=== PATIENT | male | born 1980 | race Caucasian/White ===

== ENCOUNTER 2018-04-25 13:24 | Outpatient (REF) | payer OTHER, SELFPAY ==
[2018-04-25 14:22] LABS: HCT 47.6 % (40.0-50.0); HGB 15.9 g/dL (13.5-17.5); Mean Corp. HGB Concentration 33.4 g/dL (32.0-36.0); Mean Corpuscular Volume 77.9 fL (80-95); Mean Platelet Volume 10.8 fL (8.0-11.0); Platelet Count 200 x1000/uL (130-400); RBC 6.11 m/cumm (4.50-6.00); White Blood Cell Count 7.73 k/cumm (4.4-10.8)
[2018-04-25 14:29] LABS: ALT 29 U/L (12-78); AST 13 U/L (15-37); Anion Gap 10.4 mmol/L (3-11); BUN 14 mg/dL (7-18); CO2 26.6 mmol/L (21.0-32.0); CREATININE 0.93 mg/dL (0.70-1.30); Calcium 9.4 mg/dL (8.5-10.1); Chloride 105 mmol/L (98-107); Cholesterol 192 mg/dL (50-200); Glucose 92 mg/dL (70-100); HDL Cholesterol 33 mg/dL (40-60); LDL CHOLESTEROL 145 mg/dL (<100); Potassium 4.3 mmol/L (3.5-5.1); Sodium 142 mmol/L (136-145); Triglyceride 93 mg/dL (30-150)
== END 2018-04-25 13:44 ==
LOC: NCHCN 13:24
PROVIDERS: Visit Provider Nurse Practitioner Family
DX: Z00.00 Encounter for general adult medical examination without abnormal findings (principal); Z13.220 Encounter for screening for lipoid disorders; Z13.228 Encounter for screening for other metabolic disorders; Z13.0 Encounter for screening for diseases of the blood and blood-forming organs and certain disorders involving the immune mechanism
CPT/HCPCS: 80048; 80061; 83721; 85027; 84450; 84460

== ENCOUNTER 2018-05-02 12:11 | Outpatient (REF) | payer OTHER, SELFPAY ==
[2018-05-02 13:24] LABS: Reticulocyte 0.8 % (0.5-2.4)
[2018-05-02 13:35] LABS: Iron 101 ug/dL (50-175); Total Iron Binding Capacity 310 ug/dL (250-450); Transferrin Sat 33 % (20-55)
[2018-05-02 13:53] LABS: Ferritin 186 ng/mL (8-388)
== END 2018-05-02 12:31 ==
LOC: NCHCN 12:11
PROVIDERS: PCP Nurse Practitioner Family; Visit Provider Nurse Practitioner Family
DX: Z00.00 Encounter for general adult medical examination without abnormal findings (principal); Z13.0 Encounter for screening for diseases of the blood and blood-forming organs and certain disorders involving the immune mechanism
CPT/HCPCS: 82728; 83540; 83550; 85045

== ENCOUNTER 2020-04-24 03:25 | Outpatient (CLI) | payer BC, SELFPAY ==
[2020-04-24 11:19] LABS: MCH 26.6 pg (27.0-33.0); MCHC 33.3 % (32.0-36.0); MCV 79.7 fL (80-95); MPV 9.6 fL (8.0-11.0); Platelet Count 196 10^3/uL (130-400); RBC 6.02 10^6/uL (4.36-5.78); RDW-SD 43.5 fL
[2020-04-24 12:46] LABS: D-Dimer 197 ng/mlFEU (<500)
== END 2020-04-24 03:45 ==
PROVIDERS: PCP Nurse Practitioner Family; Visit Provider Family Medicine
DX: M79.662 Pain in left lower leg (principal)
CPT/HCPCS: 36415; 85027; 85379

== ENCOUNTER 2023-10-29 15:21 | Outpatient (REF) | payer BC, SELFPAY ==
[2023-10-29 15:00] LABS: HGB 15.8 g/dL (13.5-17.5); MCH 25.9 pg (27.0-33.0); MCHC 32.9 % (32.0-36.0); MCV 79 fL (80-95); Platelet Count 183 10^3/uL (130-400); RDW 15.9 % (11.8-14.1); RDW-SD 44.2 fL; WBC 7.04 10^3/uL (4.4-10.8)
[2023-10-29 15:22] LABS: Hemoglobin A1C 5.9 % (<5.7)
[2023-10-29 19:18] LABS: Iron 77 ug/dL (65-175); Total Iron Binding Capacity 310 ug/dL (250-450); Transferrin Sat 25 % (20-55)
[2023-10-29 19:30] LABS: ALT 28 U/L (16-63); AST 15 U/L (15-37); Alkaline Phosphatase 99 U/L (46-116); Anion Gap 9.9 mmol/L (3-11); BUN 17 mg/dL (7-18); Bilirubin, Total 0.27 mg/dL (0.2-1.0); CO2 25.1 mmol/L (21.0-32.0); CREATININE 0.9 mg/dL (0.70-1.30); Calcium 8.9 mg/dL (8.5-10.1); Calculated LDL 122 mg/dL (<100); Chloride 106 mmol/L (98-107); Cholesterol 191 mg/dL (<200); Estimated GFR 107.33 (mL/min/1.73m2); Ferritin 198 ng/mL (26-388); Glucose 107 mg/dL (74-106); HDL Cholesterol 34 mg/dL (40-60); Potassium 3.9 mmol/L (3.5-5.1); Sodium 141 mmol/L (136-145); TSH (W/Ref FT4) 0.85 uIU/mL (0.36-3.74); Total Protein 6.6 g/dL (6.4-8.2); Triglyceride 177 mg/dL (<150)
[2023-11-01 11:01] LABS: Lyme Ab w Rflx to Lyme Confirm Negative (Negative)
[2023-11-01 17:24] LABS: Anaplasma phagocytophilum Negative (Negative); B. miyamotoi PCR Negative (Negative); Babesia divergens/MO-1 Negative (Negative); Babesia duncani Negative (Negative); Babesia microti Negative (Negative); Ehrlichia chaffeensis Negative (Negative); Ehrlichia ewingii/canis Negative (Negative); Ehrlichia muris eauclairensis Negative (Negative)
== END 2023-10-29 15:22 | disposition home or self-care (01) ==
LOC: NCHCN 15:21
PROVIDERS: PCP Nurse Practitioner Family; Visit Provider Nurse Practitioner Family
DX: Z00.00 Encounter for general adult medical examination without abnormal findings (principal); R53.83 Other fatigue
CPT/HCPCS: 80053; 80061; 85027; 87798; 82728; 83036; 83540; 83550; 84443; 86618

== ENCOUNTER 2024-01-21 13:47 | Emergency (ER) | payer OTHER, SELFPAY ==
[2024-01-21 14:00] VITALS: BP 146/91; RESP 10; TEMP 36.6; O2SAT 95
--- NOTE | 2024-01-21 14:13 | ED.GENADUL_ITS ---
Discharge Plan Disposition Patient Disposition: Home Condition: Stable Discharge Details Chief Complaint: Orthopedic Clinical Impression: Crushing injury of right ring finger Primary Care Provider: Nadege Saleh ED Provider: Darius Salomon Home Meds and New Rx's Prescriptions: No Action No Known Home Meds Discharge Instructions Additional Instructions: Wear the splint as needed until your pain is improved. He can follow-up with your primary care provider if not improving in 1 to 2 weeks You can take 1000 mg of acetaminophen and 600 mg of ibuprofen every 6 hours as needed If you feel more ill or have severe worsening pain return to the emergency department for reevaluation HPI General Mode of arrival: ambulatory . Date/Time Provider Initiated Documentation: 01/21/24 14:01 . Limitations to Documentation: no limitations . Information obtained by: patient . History of Present Illness 43 year old M presents to the emergency department with the chief complaint of right ring finger injury, described as moderate, Quality is described as aching, and is localized to the right and upper extremity. Patient reports no radiation. Patient started experiencing this hour(s) (1) and it has been constant. No relieving factors improve symptom(s), No exacerbating factors reported . Patient notes no other symptoms.. Patient did receive the following treatments prior to arrival, none Related Data Home Medications ?Medication ?Instructions ?Recorded ?Confirmed Unknown [No Known Home Meds] 01/21/24 01/21/24 Allergies Allergy/AdvReac Type Severity Reaction Status Date / Time No Known Allergies Allergy Unverified 01/21/24 14:01 General Stated Complaint: Orthopedic MEENAKSHI: 4 Review of Systems All systems reviewed & are unremarkable except as noted in HPI and below Constitutional Constitutional: Denies chills, Denies fever(s) and Denies weakness Cardiovascular Cardiovascular: Denies chest pain and Denies dyspnea Respiratory Respiratory: Denies cough and Denies dyspnea Gastrointestinal Gastrointestinal: Denies abdominal pain and Denies vomiting Neurologic Neurologic: Denies weakness Exam Const General: no acute distress Orientation: alert HENMT Head: normal to inspection Ears: external ears normal General nose exam: external nose normal Mouth: moist mucous membranes Eyes General: appearance normal, both eyes and all related structures Neck Neck: normal visual inspection Resp Effort & Inspection: normal respiratory effort and able to speak in complete sentences Cardio Rate: regular rate Skin General skin exam: no rashes or lesions noted Neuro General: patient alert and patient oriented x3 Extrem General: capillary refill normal Psych Mental Status: mental status grossly normal Course Vital Signs Vital signs: Vital Signs Temperature 36.6 C 01/21/24 14:00 Respiratory Rate 10 L 01/21/24 14:00 Blood Pressure 146/91 H 01/21/24 14:00 Pulse Oximetry 95 01/21/24 14:00 Temperature 36.6 C 01/21/24 14:00 Temperature Source Skin 01/21/24 14:00 Respiratory Rate 10 L 01/21/24 14:00 Blood Pressure 146/91 H 01/21/24 14:00 Blood Pressure Position Sitting 01/21/24 14:00 Pulse Oximetry 95 01/21/24 14:00 Oxygen Delivery Method Room Air 01/21/24 14:00 Oxygen Flow Rate 0 01/21/24 14:00 Pain Level 7 01/21/24 14:00 Medical Decision Making 43-year-old male who denies any significant past medical history, states that he had tetanus shot 2 years ago, comes in with right ring finger injury. He says he was at work and a heavy piece of machinery fell on the distal part of his right ring finger. He did not fall or hit his head or sustain other injuries. The distal part of his right ring finger is swollen and tender. He has a small skin abrasion on the posterior surface of the just proximal to the nail. There is no subungual hematoma, he has full range of motion at the PIP and DIP as well as the MCP joints. Intact cap refill and sensation. X-ray taken prior to my exam on my read shows distal finger fracture without significant displacement. Discussed results with him and offered orthopedic referral which she declines, advised this should heal well his own but if he still not having any improvement in a couple weeks to follow-up with his PCP. Finger splint provided wound will be cleaned by nursing and return precautions given Differential Diagnosis Differential Diagnosis: contusion, sprain, strain,fracture Quality:SDOH Health Related Social Needs: No Data to Display PFSH All Active Problems (Updated 01/21/24 @ 14:36 by Darius Salomon MD) Crushing injury of right ring finger (Acute) Social History Smoking/Tobacco Use Status: Current every day Smoking risk assessment performed?: Yes Drug use: Never
--- NOTE | 2024-01-21 14:17 | DI.RAD_ITS ---
Exam(s) XR FINGER RT RING EXAM: XR FINGER RT RING CLINICAL HISTORY: pain s/p crush injury. TECHNIQUE: 2D digital imaging was performed of the right finger. Three views were obtained. PA/AP, oblique, and lateral views were obtained. COMPARISON: No exams were available for comparison FINDINGS: BONES: There is an acute comminuted mildly displaced fracture involving the terminal tuft of the righ t ring finger. No bony destructive lesion is seen. JOINTS: No dislocation present. SOFT TISSUE: There is soft tissue swelling of the distal finger. No radiopaque foreign bodies are id entified. IMPRESSION: Minimally displaced comminuted fracture of the terminal tuft of the ring finger. DATA REPOSITORY: RADIATION DOSE DELIVERED:
== END 2024-01-21 14:53 | disposition home or self-care (01) ==
PROVIDERS: Emergency Provider Emergency Medicine; PCP Nurse Practitioner Family
DX: S62.634A Displaced fracture of distal phalanx of right ring finger, initial encounter for closed fracture (principal); F17.200 Nicotine dependence, unspecified, uncomplicated; W31.89XA Contact with other specified machinery, initial encounter; Y93.89 Activity, other specified; Y92.89 Other specified places as the place of occurrence of the external cause; Y99.0 Civilian activity done for income or pay
CPT/HCPCS: 99283; 73140

== ENCOUNTER 2025-01-04 16:06 | Outpatient (REF) | payer BC, SELFPAY ==
[2025-01-04 20:52] LABS: Abs Immature Grans 0.02 10^3/uL (0.0-0.06); HCT 48.5 % (40.0-50.0); HGB 15.8 g/dL (13.5-17.5); Immature Grans % 0.3 %; MCH 26.5 pg (27.0-33.0); MCHC 32.6 % (32.0-36.0); MCV 81 fL (80-95); MPV 10.2 fL (8.0-11.0); Platelet Count 209 10^3/uL (130-400); RBC 5.97 10^6/uL (4.36-5.78); RDW 15.0 % (11.8-14.1); RDW-SD 44.5 fL; WBC 7.83 10^3/uL (4.4-10.8)
[2025-01-04 21:01] LABS: ALT 33 U/L (16-63); AST 18 U/L (15-37); Albumin 4.2 g/dL (3.4-5.0); Alkaline Phosphatase 117 U/L (46-116); Anion Gap 10.4 mmol/L (3-11); BUN 17 mg/dL (7-18); Bilirubin, Total 0.3 mg/dL (0.2-1.0); CO2 26.6 mmol/L (21.0-32.0); Calcium 9.2 mg/dL (8.5-10.1); Chloride 106 mmol/L (98-107); Estimated GFR 106.67 (mL/min/1.73m2); Glucose 112 mg/dL (74-106); Potassium 4.3 mmol/L (3.5-5.1); Sodium 143 mmol/L (136-145); Total Protein 6.8 g/dL (6.4-8.2)
[2025-01-04 21:07] LABS: Hemoglobin A1C 5.8 % (<5.7)
[2025-01-05 19:00] LABS: HIV-1/2 Ag & Ab Screen Negative (Negative)
[2025-01-05 19:08] LABS: Hepatitis C Ab w Rflx HCV PCR Negative (Negative)
== END 2025-01-04 16:07 | disposition home or self-care (01) ==
LOC: NCHCN 16:06
PROVIDERS: PCP Nurse Practitioner Family; Visit Provider Nurse Practitioner Family
DX: Z00.00 Encounter for general adult medical examination without abnormal findings (principal); R73.09 Other abnormal glucose
CPT/HCPCS: 80053; 86803; 87389; 83036; 85025